=== PATIENT | female | born 1970 | race Two or more races ===

== ENCOUNTER 2021-12-12 15:15 | Inpatient (IN) | payer OTHER ==
[~2021-12-12] VITALS: Ht 167.6 cm; Wt 65.3 kg
[~2021-12-12 15:15] MED LIST: LEVO-T25 MCG PO; PROMETRIUM200 MG PO
[2021-12-13] MEDS ORDERED: PROGESTERONE200 MG (08:42)
[2021-12-13] MEDS ORDERED: DIETHYLPROPION75 MG (08:42)
[2021-12-13] MEDS ORDERED: CLONAZEPAM1 MG (08:43)
[2021-12-16] MEDS ORDERED: SERTRALINE HCL50 MG (08:08)
[2021-12-16] MEDS ORDERED: ATORVASTATIN CA20 MG (08:08)
[2021-12-16] MEDS ORDERED: ZOLPIDEM TARTRA10 MG (08:08)
[2021-12-16] MEDS ORDERED: BUPROPION HCL150 M1 (08:09)
== END 2021-12-16 11:03 | disposition home or self-care (01) | DRG 743 ==
LOC: O/R 12-13 05:45 → OB/GYN 12-13 13:32 → SURG 12-13 15:15 → OB/GYN 12-16 11:03
PROVIDERS: Plastic Surgery; ADMIT Obstetrics & Gynecology; ATTEND Obstetrics & Gynecology
PROC: 0JB80ZZ Excision of Abdomen Subcutaneous Tissue and Fascia, Open Approach (ICD-10-PCS; 2021-12-13)
PROC: 0UT90ZZ Resection of Uterus, Open Approach (ICD-10-PCS; principal; 2021-12-13 13:00)
PROC: 0UT70ZZ Resection of Bilateral Fallopian Tubes, Open Approach (ICD-10-PCS; 2021-12-13 13:00)
DX: N80.0 Endometriosis of uterus (principal); N72 Inflammatory disease of cervix uteri; N73.6 Female pelvic peritoneal adhesions (postinfective); M62.08 Separation of muscle (nontraumatic), other site; E65 Localized adiposity; Z20.822 Contact with and (suspected) exposure to COVID-19; Z90.710 Acquired absence of both cervix and uterus